=== PATIENT | male | born 1960 | race Caucasian/White ===

== ENCOUNTER → 2022-08-08 09:00 | Outpatient (CLI) | payer OTHER, SELFPAY ==
[2022-08-08 10:46] LABS: COVID19 -Nasal RAPID Negative (Negative)
== END ==
PROVIDERS: PCP Physician Assistant; Visit Provider Surgery
DX: Z20.822 Contact with and (suspected) exposure to COVID-19 (principal); Z01.812 Encounter for preprocedural laboratory examination
CPT/HCPCS: 87635; C9803

== ENCOUNTER 2022-08-09 07:49 | Day surgery (SDC) | payer OTHER, SELFPAY ==
--- NOTE | 2022-08-09 | PATH_ITS ---
[facility] Accession Number: [id number] . 01 Material submitted: . sigmoid colon - SIGMOID POLYP . 01 Diagnosis: Sigmoid Colon Polyp, Biopsy: Hyperplastic polyp. MRV 08/14/2022 1459 Local . 01 Electronically signed: . Negin Gallo MD, Pathologist NPI- [id number] . 01 Gross description: . SIGMOID POLYP: Received in formalin is 1 fragment(s) of stewart, soft tissue measuring 0.3 x 0.3 x 0.3 cm submitted entirely in 1 cassette(s) /MEERA 08/13/2022 1834 Local . 01 Pathologist provided ICD-10: D12.5 . 01 CPT . 513026 Specimen Comment: A courtesy copy of this report has been sent to [phone] Performed at: 01 [facility] [address] [place] [address] [id number] MD Adebayo Kwon MD Phone: [phone]
[2022-08-09 08:08] VITALS: BP 147/81; PULSE 70; RESP 12; TEMP 36.2; O2SAT 100; BMI 27.2
[2022-08-09] MEDS: LACTATED RINGERS 1,000 ML 100 ML IV (08:22)
--- NOTE | 2022-08-09 09:25 | PM.HP.1 ---
History of Present Illness History of Present Illness Date Patient Seen: 08/09/22 Time Patient Seen: 09:25 Chief complaint: SCREENING COLONOSCOPY Narrative: Timoteo is a 62-year-old man who is here for colonoscopy. His last colonoscopy was about 5 years ago and no polyps were found. He has no known family history of colon cancer. Patient History Family & Social History Social History: household members spouse Tobacco & Substance use: Smoking Status Former smoker alcohol intake current alcohol intake frequency holiday/special occasion Substance Use Type does not use Meds Home Medications and Allergies Home Medications Medication Instructions Recorded Confirmed Type allopurinol 100 mg tablet 100 mg PO DAILY 08/08/22 08/09/22 History amlodipine 5 mg tablet 5 mg PO DAILY 08/08/22 08/09/22 History losartan 50 mg tablet 50 mg PO DAILY 08/08/22 08/09/22 History Allergies Allergy/AdvReac Type Severity Reaction Status Date / Time No Known Drug Allergies Allergy Verified 08/09/22 08:05 Exam Vital Signs (past 8 hours): - 08/09/22 08:08 Temperature 97.1 F L Pulse Rate 70 Respiratory Rate 12 Blood Pressure 147/81 H Pulse Oximetry 100 Oxygen Delivery Method Room Air Oxygen Delivery Method Room Air Const General: healthy appearing Assessment & Plan Assessment and plan (1) Colon cancer screening: Status: Acute Plan We reviewed the risks and benefits of colon cancer screening and he would like to proceed. Time Spent With Patient Critical Care time: I spent a total of [] minutes of critical care time on this patient's care today; this time is exclusive of procedural time.
--- NOTE | 2022-08-09 09:38 | SUR.OPER ---
cecum at 0937
--- NOTE | 2022-08-09 09:49 | PM.OP.COLON ---
Operative Date/Time/Diagnoses Date of procedure: 08/09/22 Time of procedure: 09:50 Pre-op diagnosis: Colon cancer screening Post-op diagnosis: same Procedure & Clinicians Study performed: Colonoscopy Same procedure as scheduled: Yes Surgeon: Corbin Simon Procedure Notes Procedure in detail: Surgeon: Corbin Simon MD Anesthesia: MAC by Dr. Us Procedure: The patient was brought to the endoscopy suite, placed in left lateral decubitus position. The patient was connected to monitoring devices. A time-out was performed. Sedation was administered. Once the patient was adequately sedated, a digital rectal exam was performed and was normal. The scope was then inserted and advanced to the cecum where the appendiceal orifice was identified and photographed. The scope was then slowly withdrawn over greater than 6 minutes. The mucosa was thoroughly inspected. There was a 4 mm polyp in the sigmoid colon removed with a cold snare. The scope was retroflexed in the rectum. No other abnormalities were noted. The scope was straightened and removed. The patient was awakened and brought to recovery. Scope withdrawal time: 10 minutes EBL: 5 mL Findings: 4 mm sigmoid colon polyp Scope withdrawal time: 10 Post-procedure Recommendations: Will call with biopsy results Disposition: PACU
[2022-08-09 09:53] VITALS: BP 119/76; PULSE 81; RESP 19; TEMP 36.9; O2SAT 95
[2022-08-09 09:59] VITALS: BP 133/96; PULSE 82; RESP 14; TEMP 36.7; O2SAT 97
--- NOTE | 2022-08-09 10:44 | PM.OP.COLON ---
Operative Date/Time/Diagnoses Date of procedure: 08/09/22 Time of procedure: 10:45 Pre-op diagnosis: Colon cancer screening Post-op diagnosis: same Procedure & Clinicians Study performed: Colonoscopy Same procedure as scheduled: Yes Surgeon: Corbin Simon Procedure Notes Procedure in detail: Surgeon: Corbin Simon MD Anesthesia: MAC by Dr. Us Procedure: The patient was brought to the endoscopy suite, placed in left lateral decubitus position. The patient was connected to monitoring devices. A time-out was performed. Sedation was administered. Once the patient was adequately sedated, a digital rectal exam was performed and was normal. The scope was then inserted and advanced to the cecum where the appendiceal orifice was identified and photographed. The scope was then slowly withdrawn over greater than 6 minutes. The mucosa was thoroughly inspected. No abnormalities were noted. The scope was retroflexed in the rectum. No abnormalities were noted. The scope was straightened and removed. The patient was awakened and brought to recovery. Scope withdrawal time: 12 minutes Anesthesia time: 30 minutes EBL: 0 Findings: Normal colon Post-procedure Recommendations: Colonoscopy in 10 years Disposition: PACU
== END 2022-08-09 12:00 | disposition home or self-care (01) ==
PROVIDERS: PCP Student in an Organized Health Care Education/Training Program; Referring Provider Surgery; Visit Provider Surgery
PROC: 0DJD8ZZ Inspection of Lower Intestinal Tract, Via Natural or Artificial Opening Endoscopic (ICD-10-PCS; CPT 45378; principal; 2022-08-09 09:15)
DX: Z12.11 Encounter for screening for malignant neoplasm of colon (principal)
CPT/HCPCS: 45385; J2704; J3010